=== PATIENT | male | born 1980 | race Hispanic/Latino ===

== ENCOUNTER 2017-04-16 19:03 | Emergency (ER) | payer SELFPAY ==
[2017-04-16 20:38] LABS: #Basophils 0.1 thou/uL (0.0-0.2); #Eosinphils 0.1 thou/uL (0.0-0.7); #Lymphocytes 1.8 thou/uL (1.20-3.40); #Monocytes 0.5 thou/uL (0.11-0.59); #Neutrophils 5.7 thou/uL (1.40-6.50); %Basophils 0.8 % (0.0-1.0); %Eosinophils 1.5 % (0.0-10.0); %Monocytes 5.7 % (0.0-10.0); Hematocrit 42.6 % (42.0-52.0); Mean Platelet Volume 6.8 fL (7.4-10.4); Red Blood Cell (RBC) Count 4.87 mill/uL (4.70-6.10); White Blood Cell (WBC) Count 8.2 thou/uL (4.8-10.8)
[2017-04-16 21:09] LABS: ALT (SGPT) 23 U/L (8-55); AST (SGOT) 18 U/L (5-34); Alkaline Phosphatase 112 U/L (40-150); Anion Gap 9 mmol/L (10-20); BUN (Urea Nitrogen) 12 mg/dL (8.9-20.6); Bilirubin, Total 1.1 mg/dL (0.2-1.2); Calc. Creatinine Clearance 0 mL/min (70-130); Calcium 9.2 mg/dL (7.8-10.44); Carbon Dioxide 32 mmol/L (22-29); Chloride 98 mmol/L (98-107); Estimated GFR-MDRD Greater than 90; Globulin 4.6 g/dL (2.4-3.5); Protein, Total 8.3 g/dL (6.0-8.3)
[2017-04-16 21:10] LABS: Troponin I 0.011 ng/mL (< 0.028)
[2017-04-17] MEDS ORDERED: Ondansetron HCl/PF 4 MG/2 ML Vial ONE ×2 (02:03→02:04)
[2017-04-17] MEDS ORDERED: Acetaminophen 500 MG TAB ONE (02:53)
== END 2017-04-17 02:56 | disposition home or self-care (01) ==
LOC: ERS 19:03
DX: E86.0 Dehydration (principal)
CPT/HCPCS: 36415; 80053; 82553; 84484; 85025; 96361; 96374; J2405

== ENCOUNTER 2020-05-05 09:23 | Outpatient (CLI) | payer MEDICAID | END 2020-05-05 09:24 | disposition home or self-care (01) | LOC: EKG 09:23 | PROVIDERS: ATTEND Student in an Organized Health Care Education/Training Program | DX: I87.2 Venous insufficiency (chronic) (peripheral) (principal) | CPT/HCPCS: 93005; 93010 ==

== ENCOUNTER 2020-08-21 19:00 | Outpatient (CLI) | payer MEDICAID | END 2020-08-21 19:01 | disposition home or self-care (01) | LOC: SLEEPLAB 19:00 | PROVIDERS: ATTEND Family Medicine | DX: G47.33 Obstructive sleep apnea (adult) (pediatric) (principal); R53.83 Other fatigue; J98.9 Respiratory disorder, unspecified; R51.9 Headache, unspecified; E66.9 Obesity, unspecified; R06.83 Snoring; R35.1 Nocturia; I10 Essential (primary) hypertension; E11.9 Type 2 diabetes mellitus without complications; Z68.43 Body mass index [BMI] 50.0-59.9, adult | CPT/HCPCS: 95811 ==

== ENCOUNTER 2020-12-02 11:38 | Outpatient (CLI) | payer MEDICAID | END 2020-12-02 11:39 | disposition home or self-care (01) | LOC: TBSIIMAG 11:38 | PROVIDERS: ATTEND Family Medicine | DX: M25.362 Other instability, left knee (principal) ==

== ENCOUNTER 2021-12-05 13:44 | Outpatient (CLI) | payer OTHER | END 2021-12-05 13:45 | disposition home or self-care (01) | LOC: DTY/OP 13:44 | PROVIDERS: ATTEND Specialist | DX: E66.01 Morbid (severe) obesity due to excess calories (principal) | CPT/HCPCS: 97802 ==

== ENCOUNTER 2022-06-11 13:00 | Inpatient (IN) | payer OTHER, MEDICAID ==
[2022-06-18 10:27] VITALS: BMI 63.9
[2022-06-19] MEDS ORDERED: Heparin 1,000 UNITS/ML VIAL ONE (07:43)
[2022-06-19] MEDS ORDERED: Heparin 5,000 UNITS/ML VIAL ONE (07:43)
[2022-06-19] MEDS ORDERED: Ketorolac Tromethamine 30 MG/ML VIAL ONE (07:44)
[2022-06-19] MEDS ORDERED: Acetaminophen 500 MG TAB ONE (07:44)
[2022-06-19] MEDS ORDERED: Scopolamine 1.5 mg/72 hour Patch ONE (07:44)
[2022-06-19 08:29] LABS: SARS-CoV-2 NAA Rapid Test Not Detected (NotDetected)
[2022-06-19 09:02] LABS: #Eosinphils 0.2 thou/uL (0.0-0.7); #Lymphocytes 2.1 thou/uL (1.20-3.40); #Monocytes 0.5 thou/uL (0.11-0.59); #Neutrophils 5.4 thou/uL (1.40-6.50); %Basophils 0.2 % (0.0-1.0); %Eosinophils 2.4 % (0.0-10.0); %Lymphocytes 25.9 % (21.0-51.0); %Monocytes 5.6 % (0.0-10.0); %Neutrophils 65.9 % (42.0-75.0); Hemoglobin 12.1 g/dL (14.0-18.0); Mean Corpuscular HGB CONC 31.9 g/dL (32.0-36.0); Mean Corpuscular Hemoglobin 27.3 pg (27.0-31.0); Mean Corpuscular Volume 85.4 fl (78.0-98.0); Mean Platelet Volume 7.6 fL (7.4-10.4); Platelet Count 285 10x3/uL (130-400); RBC Distribution Width 14.5 % (11.5-14.5); Red Blood Cell (RBC) Count 4.45 mill/uL (4.70-6.10); White Blood Cell (WBC) Count 8.2 10x3/uL (4.8-10.8)
[2022-06-19] MEDS ORDERED: CEFAZOLIN 2 GM VIAL ONE (09:06)
[2022-06-19] MEDS ORDERED: Sodium Chloride 0.9% 100 ML ONE (09:06)
[2022-06-19] MEDS ORDERED: cefOXitin 2 GM VIAL ONE (09:07)
[2022-06-19] MEDS ORDERED: Metoclopramide HCl 10 MG/2 ML VIAL ONE (09:10)
[2022-06-19] MEDS ORDERED: PROPOFOL 20 ML ONE (09:10)
[2022-06-19] MEDS ORDERED: fentaNYL PF 100 MCG/2 ML SYRINGE ONE (09:10)
[2022-06-19] MEDS ORDERED: Famotidine/PF 20 mg/2ml Vial ONE (09:10)
[2022-06-19] MEDS ORDERED: Ondansetron PF 4 MG/2 ML Vial ONE ×2 (09:10→09:17)
[2022-06-19] MEDS ORDERED: SUGAMMADEX SODIUM 200 MG/2 ML VIAL ONE (09:11)
[2022-06-19] MEDS ORDERED: Lidocaine 1% PF 5 ML VIAL ONE (09:17)
[2022-06-19] MEDS ORDERED: Rocuronium Bromide 10 MG/ML (10ML VIAL) ONE (09:17)
[2022-06-19] MEDS ORDERED: Succinylcholine Chloride 100 MG/5 ML SYRINGE FS ONE (09:17)
[2022-06-19] MEDS ORDERED: PROPOFOL 200 MG/20 ML VIAL ONE (09:17)
[2022-06-19] MEDS ORDERED: HYDROmorphone 0.5 MG/0.5 ML SYRINGE ONE (11:57)
[2022-06-19] MEDS ORDERED: Promethazine HCl 25 MG/ML VIAL ONE (11:57)
[2022-06-19] MEDS ORDERED: Ondansetron HCl/PF 4 MG/2 ML Vial IVP PRN (12:30)
[2022-06-19] MEDS ORDERED: Promethazine HCl 25 MG/ML VIAL IM PRN ×2 (12:30→15:56)
[2022-06-19] MEDS ORDERED: Meperidine HCl/PF 25 MG/ML VIAL SLOW IVP PRN (12:30)
[2022-06-19] MEDS ORDERED: Fentanyl 250 MCG/5 ML VIAL ONE (12:43)
[2022-06-19] MEDS ORDERED: Bupivacaine/Epinephrine 0.25% 30 ML VIAL ONE (13:58)
[2022-06-19] MEDS ORDERED: Dextrose 50% Abboject 50 ML SYRINGE SLOW IVP PRN (15:56)
[2022-06-19] MEDS ORDERED: Morphine 4 MG/ML VIAL SLOW IVP PRN (15:56)
[2022-06-19] MEDS ORDERED: diphenhydrAMINE 50 MG/ML VIAL IVP PRN (15:56)
[2022-06-19] MEDS ORDERED: Ipratropium/Albuterol 3 ML NEB NEB PRN (15:56)
[2022-06-19] MEDS ORDERED: Insulin Regular 300 UNITS/3 ML VIAL SC PRN (15:56)
[2022-06-19] MEDS ORDERED: Morphine 2 MG/ML VIAL SLOW IVP PRN (15:56)
[2022-06-19] MEDS ORDERED: hydrALAZINE 20 MG/ML VIAL SLOW IVP PRN (15:56)
[2022-06-19] MEDS ORDERED: Dextrose 5% in Water 1,000 ML IV PRN (15:56)
[2022-06-19] MEDS: 1/2 NS w/KCL 20 mEq 1,000 ML IV SCH (16:30)
[2022-06-19] MEDS: Hydrocodone-Acetamin 15 ML UDCUP PO PRN ×2 (16:39→21:11)
[2022-06-19] MEDS: Ketorolac Tromethamine 30 MG/ML VIAL IVP SCH (16:53)
[2022-06-19] MEDS: Ondansetron PF 4 MG/2 ML Vial IVP PRN (16:53)
[2022-06-19] MEDS: metFORMIN 500 MG TAB PO SCH (18:26)
[2022-06-19] MEDS ORDERED: Atorvastatin Calcium 40 MG TAB PO SCH (21:00)
[2022-06-20] MEDS: Ketorolac Tromethamine 30 MG/ML VIAL IVP SCH ×2 (00:15→06:00)
[2022-06-20] MEDS: 1/2 NS w/KCL 20 mEq 1,000 ML IV SCH (00:15)
[2022-06-20] MEDS: Hydrocodone-Acetamin 15 ML UDCUP PO PRN ×2 (03:46→08:16)
[2022-06-20] MEDS: Ondansetron PF 4 MG/2 ML Vial IVP PRN (03:46)
[2022-06-20 06:55] LABS: #Eosinphils 0.2 thou/uL (0.0-0.7); #Lymphocytes 1.8 thou/uL (1.20-3.40); #Monocytes 0.5 thou/uL (0.11-0.59); #Neutrophils 6.2 thou/uL (1.40-6.50); %Eosinophils 1.9 % (0.0-10.0); %Lymphocytes 21.1 % (21.0-51.0); %Monocytes 5.8 % (0.0-10.0); %Neutrophils 71.2 % (42.0-75.0); Hemoglobin 11.8 g/dL (14.0-18.0); Mean Corpuscular HGB CONC 32.7 g/dL (32.0-36.0); Mean Corpuscular Hemoglobin 27.9 pg (27.0-31.0); Mean Corpuscular Volume 85.3 fl (78.0-98.0); Mean Platelet Volume 7.3 fL (7.4-10.4); Platelet Count 278 10x3/uL (130-400); RBC Distribution Width 14.5 % (11.5-14.5); Red Blood Cell (RBC) Count 4.22 mill/uL (4.70-6.10); White Blood Cell (WBC) Count 8.7 10x3/uL (4.8-10.8)
[2022-06-20 07:17] LABS: Anion Gap 11 mmol/L (10-20); BUN (Urea Nitrogen) 8 mg/dL (8.9-20.6); Calc. Creatinine Clearance 334 mL/min (70-130); Calcium 8.8 mg/dL (7.8-10.44); Carbon Dioxide 27 mmol/L (22-29); Chloride 100 mmol/L (98-107); Estimated GFR 117; Glucose 136 mg/dL (70-105); Potassium 4.2 mmol/L (3.5-5.1); Sodium 134 mmol/L (136-145)
[2022-06-20 08:03] VITALS: TEMP 97.7
[2022-06-20] MEDS: metFORMIN 500 MG TAB PO SCH (08:17)
[2022-06-20] MEDS ORDERED: Pantoprazole 40 MG VIAL IVP SCH (09:00)
[2022-06-20] MEDS ORDERED: Losartan 25 MG TAB PO SCH (09:00)
[2022-06-20 11:29] VITALS: BP 114/77
== END 2022-06-20 12:02 | disposition home or self-care (01) | DRG 621 ==
LOC: SURG A 06-19 07:07
PROVIDERS: ADMIT Specialist; ATTEND Specialist
PROC: 0DB64Z3 Excision of Stomach, Percutaneous Endoscopic Approach, Vertical (ICD-10-PCS; principal; 2022-06-19)
DX: E66.01 Morbid (severe) obesity due to excess calories (principal); I10 Essential (primary) hypertension; E78.00 Pure hypercholesterolemia, unspecified; E11.9 Type 2 diabetes mellitus without complications; Z20.822 Contact with and (suspected) exposure to COVID-19; Z68.44 Body mass index [BMI] 60.0-69.9, adult
CPT/HCPCS: 36415; 36416; 80048; 85025; 88307; 94760; C9113; J0694; J1170; J1644; J1650; J1885; J2405; J2550; J2704; J2765; J3010; J3480; J3490; S0028; U0002

== ENCOUNTER 2022-06-11 13:00 | Outpatient (CLI) | payer OTHER ==
[2022-06-11 14:23] LABS: Anion Gap 13 mmol/L (10-20); BUN (Urea Nitrogen) 11 mg/dL (8.9-20.6); Calc. Creatinine Clearance 0 mL/min (70-130); Calcium 9.4 mg/dL (7.8-10.44); Carbon Dioxide 26 mmol/L (22-29); Chloride 101 mmol/L (98-107); Estimated GFR 113; Glucose 227 mg/dL (70-105); Potassium 4.2 mmol/L (3.5-5.1); Sodium 136 mmol/L (136-145)
== END 2022-06-11 13:01 | disposition home or self-care (01) ==
LOC: LABBT 13:00
PROVIDERS: ATTEND Specialist
DX: Z01.818 Encounter for other preprocedural examination (principal); E66.01 Morbid (severe) obesity due to excess calories
CPT/HCPCS: 80048; 93005; 93010

== ENCOUNTER 2023-03-15 17:00 | Outpatient (CLI) | payer OTHER | END 2023-03-15 17:01 | disposition home or self-care (01) | LOC: SLEEPLAB 17:00 | PROVIDERS: ATTEND Student in an Organized Health Care Education/Training Program | DX: G47.33 Obstructive sleep apnea (adult) (pediatric) (principal); E11.9 Type 2 diabetes mellitus without complications; E66.9 Obesity, unspecified; Z68.42 Body mass index [BMI] 45.0-49.9, adult; R06.83 Snoring; I10 Essential (primary) hypertension | CPT/HCPCS: 95811 ==